=== PATIENT | male | born 1950 ===

== ENCOUNTER 2017-07-11 10:10 | Emergency (ER) | payer OTHER, MEDICARE ==
[2017-07-11 10:26] VITALS: BMI 32.8
[2017-07-11 10:27] VITALS: BP 130/65; PULSE 51; RESP 17; TEMP 98.6; O2SAT 96
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
== END 2017-07-11 13:24 | disposition home or self-care (01) ==
LOC: MERGE 10:10 → H.ER 10:10
DX: M54.2 Cervicalgia (principal); M54.9 Dorsalgia, unspecified; I10 Essential (primary) hypertension